=== PATIENT | female | born 1970 | race Caucasian/White ===

== ENCOUNTER 2017-08-03 07:10 | Day surgery (SDC) | payer BC ==
[~2017-08-03 07:10] MED LIST: Lactated Ringers 1,000 ML IV SCH; Lidocaine 1%/Sod Bicarbonate in NS 8.4% 1 ML Syringe IV PRN; Sodium Chloride 0.9% 10 ML Syringe FLUSH PRN
[2017-08-03] MEDS ORDERED: fentaNYL 250 MCG/5 ML SDV ONE (07:25)
[2017-08-03] MEDS ORDERED: Propofol 200 MG/20 ML SDV ONE (07:25)
[2017-08-03] MEDS ORDERED: Lidocaine 1% 4 ML ONE (07:26)
[2017-08-03] MEDS ORDERED: Midazolam 1 MG/ML 2 ML SDV ONE (07:26)
[2017-08-03] MEDS ORDERED: Lidocaine 1% 30 ML SDV ONE (07:32)
--- NOTE | 2017-08-03 07:32 | PCM.PREANE ---
Preanesthetic Assessment - Anesthesia/Transfusion/Family Hx Anesthesia History: Prior Anesthesia Without Reaction (nausea) Family History of Anesthesia Reaction: No Transfusion History: No Prior Transfusion(s) - Review of Systems General: No Symptoms Pulmonary: No Symptoms Cardiovascular: No Symptoms Gastrointestinal: No Symptoms Neurological: No Symptoms Other: Reports: None - Physical Assessment NPO Status Date: 08/02/17 NPO Status Time: 00:00 Pulse: 65 O2 Sat by Pulse Oximetry: 100 Respiratory Rate: 16 Blood Pressure: 104/73 Temperature: 36.9 C Height: 18.9 m Weight: 66.224 kg ASA Class: 2 Mental Status: Alert & Oriented x3 Airway Class: Mallampati = 1 Dentition: Reports: Normal Dentition Thyro-Mental Finger Breadths: 3 Mouth Opening Finger Breadths: 3 ROM/Head Extension: Full Lungs: Clear to Auscultation, Normal Respiratory Effort Cardiovascular: Regular Rate, Regular Rhythm, No Murmurs - Allergies Allergies/Adverse Reactions: Allergies Allergy/AdvReac Type Severity Reaction Status Date / Time No Known Allergies Allergy Verified 08/02/17 12:57 - Blood Blood Available: No Product(s) Available: None - Anesthesia Plan Pre-Op Medication Ordered: None - Acknowledgements Anesthesia Type Planned: MAC Pt an Appropriate Candidate for the Planned Anesthesia: Yes Alternatives and Risks of Anesthesia Discussed w Pt/Guardian: Yes Pt/Guardian Understands and Agrees with Anesthesia Plan: Yes PreAnesthesia Questionnaire HEENT History: Reports: Impaired Vision, Other (See Below) Other HEENT History: wears glasses Cardiovascular History: Reports: None Respiratory History: Reports: None Gastrointestinal History: Reports: Hemorrhoids Genitourinary History: Reports: Other (See Below) Other Genitourinary History: right hydronephrosis, stage III CKD [employer] History: Reports: Musculoskeletal History: Reports: Other (See Below) Other Musculoskeletal History: Right sciatica/back pain Neurological History: Reports: Migraines Psychiatric History: Reports: None Endocrine/Metabolic History: Reports: None Hematologic History: Reports: None Immunologic History: Reports: None Oncologic (Cancer) History: Reports: None Dermatologic History: Reports: None - Past Surgical History Head Surgeries/Procedures: Reports: None Cardiovascular Surgical History: Reports: None Respiratory Surgical History: Reports: None Female Surgical History: Reports: Section, Hysterectomy Endocrine Surgical History: Reports: None Neurological Surgical History: Reports: None Oncologic Surgical History: Reports: None Dermatological Surgical History: Reports: None - SUBSTANCE USE Smoking Status *Q: Never Smoker Tobacco Use Within Last Twelve Months: No Second Hand Smoke Exposure: No Days Per Week of Alcohol Use: 1 Number of Drinks Per Day: 1 Total Drinks Per Week: 1 Recreational Drug Use History: No - HOME MEDS Home Medications: Home Meds Progesterone,Micronized [Prometrium] 100 mg PO BEDTIME 08/02/17 [History] - CURRENT (IN HOUSE) MEDS Current Meds: Current Medications Lactated Ringer's (Ringers, Lactated) 1,000 mls @ 125 mls/hr IV ASDIRECTED LIZA Stop: 08/03/17 23:00 Lidocaine/Sodium Bicarbonate (Buffered Lidocaine 1% In Ns 8.4%) 0.25 ml IV ONETIME PRN PRN Reason: Prior to IV Start Stop: 08/03/17 18:00 Sodium Chloride (Saline Flush) 10 ml FLUSH ASDIRECTED PRN PRN Reason: Keep Vein Open Stop: 08/03/17 18:00 Discontinued Medications Fentanyl (Sublimaze) Confirm Administered Dose 250 mcg .ROUTE .STK-MED ONE Stop: 08/03/17 07:26 Lidocaine HCl (Xylocaine-Mpf 1%) Confirm Administered Dose 4 mls @ as directed .ROUTE .STK-MED ONE Stop: 08/03/17 07:27 Midazolam HCl (Versed 1 Mg/Ml) Confirm Administered Dose 2 mg .ROUTE .STK-MED ONE Stop: 08/03/17 07:27 Propofol (Diprivan 20 Ml) Confirm Administered Dose 200 mg .ROUTE .STK-MED ONE Stop: 08/03/17 07:26
--- NOTE | 2017-08-03 08:10 | PCM.OPNOTE ---
- General Post-Op/Procedure Note Date of Surgery/Procedure: 08/03/17 Operative Procedure(s): 1. Anoscopy. 2. 3 column internal hemorrhoid rubber band ligation Findings: 1. Anal tags 2. 3 column internal non prolapsing hemorrhoids Pre Op Diagnosis: Rectal bleeding Post-Op Diagnosis: 1. Anal tags. 2. Internal hemorrhoids Anesthesia Technique: MAC, Moderate Sedation Primary Surgeon: Charly Espinoza Pathology: None EBL in mLs: 0 Complications: None Condition: Good Free Text/Narrative:: After adequate IV sedation and analgesia was administered with monitoring the patient was placed in the prone jackknife position with her buttocks taped. The perianal region was prepped with Betadine and draped off. Perianal inspection revealed the small anal tags. Digital rectal examination revealed a normal sphincter tone. Anoscopy confirmed the presence of 3 column internal hemorrhoids. There were no fissures or fistulas seen. Rubber bands were placed above the dentate line in the 3 areas. There were no complications.
[2017-08-03 09:15] VITALS: BP 107/66
== END 2017-08-03 09:00 | disposition home or self-care (01) ==
LOC: JD.SDS 07:10
PROVIDERS: ATTEND Surgery
DX: K64.8 Other hemorrhoids (principal); K64.4 Residual hemorrhoidal skin tags; Z90.710 Acquired absence of both cervix and uterus; Z98.890 Other specified postprocedural states; Z79.899 Other long term (current) drug therapy
CPT/HCPCS: 46221; J2250; J3010; J7120; 00902; A9270-GY; J2704

== ENCOUNTER 2021-02-26 17:22 | Emergency (ER) | payer BC ==
[2021-02-26 17:47] VITALS: BP 126/79; PULSE 83
--- NOTE | 2021-02-26 18:09 | EDM.PDOC ---
ED HPI GENERAL MEDICAL PROBLEM - General Chief Complaint: Upper Extremity Injury/Pain Stated Complaint: R SHOULDER PAIN Time Seen by Provider: 02/26/21 17:41 Source of Information: Reports: Patient History Limitations: Reports: No Limitations - History of Present Illness INITIAL COMMENTS - FREE TEXT/NARRATIVE: The patient presents with right shoulder and neck pain. This has been going on for about a month but since it has been more constant. She does not recall a specific instance of hurting herself. She has been taking care of her grand children and night her grandson was up a lot and she had to lift him up a few times throughout the night. She says the pain is also in the neck. She has pain that radiates to her forearm and elbow now. She has no weakness or numbness. She has no chest pain or shortness of breath. Onset: Gradual Duration: Week(s): Location: Reports: Neck, Upper Extremity, Right (shoulder) Quality: Reports: Sharp Severity: Moderate Improves with: Reports: None Worsens with: Reports: None Associated Symptoms: Reports: No Other Symptoms Treatments P[employer]ELTER: Reports: Acetaminophen Right Shoulder Pain Score (Numeric/FACES): 9 - Related Data Allergies Allergy/AdvReac Type Severity Reaction Status Date / Time No Known Allergies Allergy Verified 02/26/21 17:41 Home Meds: Home Meds ZOLMitriptan [Zolmitriptan] 5 mg PO ASDIRECTED PRN 08/03/17 [History] Cyclobenzaprine [Flexeril] 10 mg PO TID PRN #20 tab 02/26/21 [Rx] Hydrocodone/Acetaminophen [Hydrocodone-Acetamin 5-325 mg] 1 - 2 each PO Q6HR PRN #20 tablet 02/26/21 [Rx] Past Medical History HEENT History: Reports: Impaired Vision, Other (See Below) Other HEENT History: wears glasses Cardiovascular History: Reports: None Respiratory History: Reports: None Gastrointestinal History: Reports: Hemorrhoids Genitourinary History: Reports: Other (See Below) Other Genitourinary History: right hydronephrosis, stage III CKD [employer] History: Reports: Musculoskeletal History: Reports: Other (See Below) Other Musculoskeletal History: Right sciatica/back pain Neurological History: Reports: Migraines Psychiatric History: Reports: None Endocrine/Metabolic History: Reports: None Hematologic History: Reports: None Immunologic History: Reports: None Oncologic (Cancer) History: Reports: None Dermatologic History: Reports: None - Infectious Disease History Infectious Disease History: Reports: Chicken Pox, Herpes - Past Surgical History Head Surgeries/Procedures: Reports: None HEENT Surgical History: Reports: None Cardiovascular Surgical History: Reports: None Respiratory Surgical History: Reports: None GI Surgical History: Reports: None Female Surgical History: Reports: Section, Hysterectomy Endocrine Surgical History: Reports: None Neurological Surgical History: Reports: None Oncologic Surgical History: Reports: None Dermatological Surgical History: Reports: None Social & Family History - Family History Family Medical History: No Pertinent Family History - Tobacco Use Tobacco Use Status *Q: Never Tobacco User - Caffeine Use Caffeine Use: Reports: Coffee - Recreational Drug Use Recreational Drug Use: No Review of Systems - Review of Systems Review Of Systems: See Below Constitutional: Reports: No Symptoms Eyes: Reports: No Symptoms Ears: Reports: No Symptoms Nose: Reports: No Symptoms Mouth/Throat: Reports: No Symptoms Respiratory: Reports: No Symptoms Cardiovascular: Reports: No Symptoms GI/Abdominal: Reports: No Symptoms Musculoskeletal: Reports: Neck Pain, Shoulder Pain ED EXAM, GENERAL - Physical Exam Exam: See Below Exam Limited By: No Limitations General Appearance: Alert, No Apparent Distress Ears: Normal External Exam Nose: Normal Inspection Head: Atraumatic, Normocephalic Neck: Other (Mild pain upon palpation to the right lateral neck) Respiratory/Chest: No Respiratory Distress Extremities: Other (Mild pain upon palpation to the right shoulder. Good sensation and pulses distally.) Course - Vital Signs Last Recorded V/S: Last Vital Signs Temp 97.5 F 02/26/21 17:44 Pulse 83 02/26/21 17:44 Resp 18 02/26/21 17:44 BP 126/79 02/26/21 17:44 Pulse Ox 97 02/26/21 17:44 - Orders/Labs/Meds Orders: Active Orders 24 hr Category Date Time Status Cervical Spine 2V or 3V [CR] Stat Exams 02/26/21 17:57 Taken Shoulder Comp Rt [CR] Stat Exams 02/26/21 17:57 Taken HYDROmorphone [Dilaudid] Med 02/26/21 18:33 Once 1 mg IM ONETIME ONE Medication Orders Hydromorphone HCl (Hydromorphone 1 Mg/Ml Syringe) 1 mg IM ONETIME ONE Stop: 02/26/21 18:34 Meds: Medications Generic Name Dose Route Start Last Admin Trade Name Donnie PRN Reason Stop Dose Admin Hydromorphone HCl 1 mg 02/26/21 18:33 Hydromorphone 1 Mg/Ml Syringe IM 02/26/21 18:34 ONETIME ONE - Re-Assessments/Exams Free Text/Narrative Re-Assessment/Exam: 02/26/21 18:11 I ordered an x-ray of her shoulder and cervical spine. 02/26/21 18:34 The x-ray of her shoulder looks good. The x-ray of her cervical spine shows loss of normal curvature and some degenerative changes. I feel she has a cervical radiculopathy. I will get her a muscle relaxer and some hydrocodone for pain. She was told to not take antiinflammatories because she only has one kidney. Departure - Departure Time of Disposition: 18:40 Disposition: Home, Self-Care 01 Condition: Good Clinical Impression: Cervical radiculopathy - Discharge Information *PRESCRIPTION DRUG MONITORING PROGRAM REVIEWED*: Not Applicable *COPY OF PRESCRIPTION DRUG MONITORING REPORT IN PATIENT WILBERT: Not Applicable Prescriptions: Cyclobenzaprine [Flexeril] 10 mg PO TID PRN #20 tab PRN Reason: Pain Hydrocodone/Acetaminophen [Hydrocodone-Acetamin 5-325 mg] 1 - 2 each PO Q6HR PRN #20 tablet PRN Reason: Pain Referrals: Melissa Campos PA-C [Primary Care Provider] - 1 Week Forms: ED Department Discharge Additional Instructions: Take the flexeril 3 times per day as needed for pain. You may also take the hydrocodone. Try not to take them together because both can make you drowsy and do not drive when taking them. I have put an order in for an MRI of your neck. Someone from our radiology department will be calling you on Sunday. Follow up with Lona on Sunday. Sepsis Event Note (ED) - Evaluation Sepsis Screening Result: No Definite Risk - Focused Exam Vital Signs: Vital Signs Temp Pulse Resp BP Pulse Ox 02/26/21 17:44 97.5 F 83 18 126/79 97 - My Orders Last 24 Hours: My Active Orders 02/26/21 17:57 Cervical Spine 2V or 3V [CR] Stat Shoulder Comp Rt [CR] Stat 02/26/21 18:33 HYDROmorphone [Dilaudid] 1 mg IM ONETIME ONE - Assessment/Plan Last 24 Hours: My Active Orders 02/26/21 17:57 Cervical Spine 2V or 3V [CR] Stat Shoulder Comp Rt [CR] Stat 02/26/21 18:33 HYDROmorphone [Dilaudid] 1 mg IM ONETIME ONE
[2021-02-26] MEDS ORDERED: HYDROmorphone 1 MG/ML Syringe IM ONE (18:33)
--- NOTE | 2021-02-27 11:08 | CR ---
Cervical spine: AP, lateral and odontoid views of the cervical spine were obtained. Comparison: No prior cervical spine imaging is available. Severe disc space narrowing is noted at C3-4, C4-5, C5-6 and C6-7. Posterior osteophytes are seen at C4-5, C5-6 and C6-7. Diffuse anterior osteophytes are seen at C3-4 through C6-7. Slightly abnormal cervical curvature is seen. Vertebral body heights are maintained. Mild degenerative apophyseal change is seen throughout the cervical spine. No acute fracture or subluxation is seen. Impression: 1. Diffuse degenerative change as noted above. Degenerative change causes mild abnormal cervical curvature. Diagnostic code #2
--- NOTE | 2021-02-27 11:42 | CR ---
Right shoulder: 3 views of the right shoulder were obtained. Comparison: No prior shoulder study is available. Glenohumeral joint and acromioclavicular joint appears within normal limits. No acute fracture, dislocation or other bony abnormality is appreciated. No abnormal soft tissue calcifications are seen. Impression: 1. No abnormality is identified on 3 view right shoulder study. Diagnostic code #1
== END 2021-02-26 19:00 | disposition home or self-care (01) ==
LOC: JD.ED 17:22
DX: M54.12 Radiculopathy, cervical region (principal); Z79.899 Other long term (current) drug therapy
CPT/HCPCS: 72040; 73030; 96372; 99283; J1170

== ENCOUNTER 2021-11-03 08:45 | Day surgery (SDC) | payer BC ==
[~2021-11-03 08:45] MED LIST changes: +Lidocaine 1%/Sod Bicarbonate in NS 8.4% 1 ML Syringe IDERM PRN; -Lidocaine 1%/Sod Bicarbonate in NS 8.4% 1 ML Syringe IV PRN
[2021-11-03] MEDS ORDERED: Bupivacaine 0.5% 10 ML SDV ONE (09:28)
[2021-11-03] MEDS ORDERED: Lidocaine 1% 4 ML ONE (09:44)
[2021-11-03] MEDS ORDERED: Propofol 200 MG/20 ML SDV ONE ×4 (09:44→10:48)
--- NOTE | 2021-11-03 09:56 | PCM.PREANE ---
Preanesthetic Assessment - Procedure Proposed Procedure: Colonoscopy - Anesthesia/Transfusion/Family Hx Anesthesia History: Prior Anesthesia Without Reaction (nausea) Type of Anesthesia Reaction: Excessive Nausea/Vomiting Transfusion History: No Prior Transfusion(s) Intubation History: Unknown - Review of Systems General: No Symptoms Pulmonary: No Symptoms Cardiovascular: No Symptoms Gastrointestinal: No Symptoms Neurological: No Symptoms Other: Reports: Neck Pain - Physical Assessment NPO Status Date: 11/03/21 NPO Status Time: 04:30 Vital Signs: Last Vital Signs Temp 97.8 F 11/03/21 08:40 Pulse 73 11/03/21 08:40 Resp 16 11/03/21 08:40 BP 107/72 11/03/21 08:40 Pulse Ox 96 11/03/21 08:40 Height: 1.63 m Weight: 69.4 kg ASA Class: 2 Mental Status: Alert & Oriented x3 Airway Class: Mallampati = 2 Dentition: Reports: Caries Thyro-Mental Finger Breadths: 3 Mouth Opening Finger Breadths: 3 ROM/Head Extension: Full Lungs: Clear to Auscultation, Normal Respiratory Effort Cardiovascular: Regular Rate, Regular Rhythm, No Murmurs - Lab Values: Labs reviewed and okay to proceed - Allergies Allergies/Adverse Reactions: Allergies Allergy/AdvReac Type Severity Reaction Status Date / Time No Known Allergies Allergy Verified 02/26/21 17:41 - Acknowledgements Anesthesia Type Planned: MAC Pt an Appropriate Candidate for the Planned Anesthesia: Yes Alternatives and Risks of Anesthesia Discussed w Pt/Guardian: Yes Pt/Guardian Understands and Agrees with Anesthesia Plan: Yes PreAnesthesia Questionnaire HEENT History: Reports: Impaired Vision, Other (See Below) Other HEENT History: wears glasses Cardiovascular History: Reports: None Respiratory History: Reports: None Gastrointestinal History: Reports: Hemorrhoids, Other (See Below) Other Gastrointestinal History: elevated liver enzymes Genitourinary History: Reports: Other (See Below) Other Genitourinary History: right hydronephrosis, stage III CKD [employer] History: Reports: Musculoskeletal History: Reports: Other (See Below) Other Musculoskeletal History: Right sciatica/back pain, has been relieved since surgery; lumbar disc herniation; neck pain Neurological History: Reports: Migraines Psychiatric History: Reports: None Endocrine/Metabolic History: Reports: None Hematologic History: Reports: None Immunologic History: Reports: None Oncologic (Cancer) History: Reports: None Dermatologic History: Reports: None - Infectious Disease History Infectious Disease History: Reports: Chicken Pox, Herpes - Past Surgical History Head Surgeries/Procedures: Reports: None HEENT Surgical History: Reports: None Cardiovascular Surgical History: Reports: None Respiratory Surgical History: Reports: None GI Surgical History: Reports: None Female Surgical History: Reports: Section, Hysterectomy Endocrine Surgical History: Reports: None Neurological Surgical History: Reports: None, Lumbar Spine Musculoskeletal Surgical History: Reports: None Oncologic Surgical History: Reports: None Dermatological Surgical History: Reports: None - SUBSTANCE USE Tobacco Use Status *Q: Never Tobacco User Tobacco Use Within Last Twelve Months: No Second Hand Smoke Exposure: No Days Per Week of Alcohol Use: 3 Number of Drinks Per Day: 2 Total Drinks Per Week: 6 Recreational Drug Use History: No - HOME MEDS Home Medications: Home Meds DULoxetine [Cymbalta] 60 mg PO DAILY 11/03/21 [History] Metaxalone 800 mg PO ASDIRECTED PRN 11/03/21 [History] ZOLMitriptan [Zolmitriptan] 5 mg PO ASDIRECTED PRN 11/03/21 [History] valACYclovir [Valtrex] 1,000 mg PO ASDIRECTED PRN 11/03/21 [History] - CURRENT (IN HOUSE) MEDS Current Meds: Current Medications Lactated Ringer's (Ringers, Lactated) 1,000 mls @ 125 mls/hr IV ASDIRECTED LIZA Stop: 11/03/21 23:00 Last Admin: 11/03/21 08:45 Dose: 125 mls/hr Documented by: Lidocaine/Sodium Bicarbonate (Lidocaine 1%/Sod Bicarbonate In Ns 8.4% 1 Ml Syringe) 0.25 ml IDERM ONETIME PRN PRN Reason: Prior to IV Start Stop: 11/03/21 18:00 Sodium Chloride (Sodium Chloride 0.9% 10 Ml Syringe) 10 ml FLUSH ASDIRECTED PRN PRN Reason: Keep Vein Open Stop: 11/03/21 18:00 Discontinued Medications Bupivacaine HCl (Bupivacaine 0.5% 10 Ml Sdv) Confirm Administered Dose 10 ml .ROUTE .STK-MED ONE Stop: 11/03/21 09:29 Lidocaine HCl (Xylocaine-Mpf 1%) Confirm Administered Dose 4 mls @ as directed .ROUTE .STK-MED ONE Stop: 11/03/21 09:45 Propofol (Propofol 200 Mg/20 Ml Sdv) Confirm Administered Dose 200 mg .ROUTE .[facility] ONE Stop: 11/03/21 09:45
--- NOTE | 2021-11-03 11:12 | PCM48HPAN ---
Post Anesthesia Note - EVALUATION WITHIN 48HRS OF ANESTHETIC Vital Signs in Normal Range: Yes Patient Participated in Evaluation: Yes Respiratory Function Stable: Yes Airway Patent: Yes Cardiovascular Function Stable: Yes Hydration Status Stable: Yes Pain Control Satisfactory: Yes Nausea and Vomiting Control Satisfactory: Yes Mental Status Recovered: Yes Vital Signs: Last Vital Signs Temp 36.6 C 11/03/21 08:40 Pulse 73 11/03/21 08:40 Resp 16 11/03/21 08:40 BP 107/72 11/03/21 08:40 Pulse Ox 96 11/03/21 08:40
--- NOTE | 2021-11-03 11:13 | PCM.PRNOTE ---
- Free Text/Narrative Note: Date: 11/03/2021 Procedures: screening colonoscopy, excision of external hemorrhoidal skin tags x 2 History: no prior colon cancer screening, average risk Endoscopist: Orlando Magallanes MD Findings: minor hemorrhoidal disease with small external hemorrhoidal skin tags. Tough turn at rectosigmoid junction. No colon pathology otherwise noted; cecum reached and bowel prep was fair. Detailed Report: The patient was taken to the endoscopy suite and placed in left lateral decubitus position. Timeout was performed and monitored anesthesia care was initiated. The anus was inspected and small external hemorrhoidal skin tags were noted. Digital rectal exam was unremarkable, no tissue prolapse on manipulation. The colonoscope was inserted and advanced all the way to the cecum. It was tough to navigate beyond the rectosigmoid junction due to tight turn. The scope was successfully advanced to the cecum. The appendiceal orifice was well visualized. The scope was slowly withdrawn and mucosal surfaces carefully inspected. Prep was fair, there was a lot of thin fluid and lots of bubbles along the length of the colon. No polyps were identified. No diverticular disease was noted. On retroflexion in the rectum, minor internal hemorrhoidal disease was appreciated. Air was suctioned from the distal colon and rectum prior to withdrawal of the scope. Next, attention was turned to the external hemorrhoidal skin tags that the patient had pointed out prior to the procedure. The external hemorrhoidal components were more apparent with the patient sedated in the endoscopy suite. 5 cc of 1% lidocaine was injected around the skin tags. These were fairly small. Visible hemorrhoidal tissue was seen associated with one of the skin tags at the right posterior column. A clamp was placed on this tissue and the hemorrhoidal skin tag and some associated hemorrhoidal tissue was excised sharply with scissors. The clamp was removed, and hemostasis was satisfactory after placing one simple chromic suture. The most prominent skin tag was then addressed in similar fashion. An additional suture was placed. Hemostasis was satisfactory, and the anus was padded with dry gauze and mesh underwear was applied. The patient tolerated the procedure well.
[2021-11-03 18:40] VITALS: BP 110/73; PULSE 57
== END 2021-11-03 11:43 | disposition home or self-care (01) ==
LOC: JD.SDS 08:45
PROVIDERS: ATTEND Surgery
DX: Z12.11 Encounter for screening for malignant neoplasm of colon (principal); K64.4 Residual hemorrhoidal skin tags; K64.8 Other hemorrhoids; N18.30 Chronic kidney disease, stage 3 unspecified; Z79.899 Other long term (current) drug therapy; G43.909 Migraine, unspecified, not intractable, without status migrainosus; Z98.890 Other specified postprocedural states
CPT/HCPCS: 45378; 46250; J2704; J3490; J7120; 00812